=== PATIENT | male | born 1955 | race Caucasian/White ===

== ENCOUNTER 2025-04-30 19:51 | Emergency (ER) | payer MEDICARE ==
[2025-04-30 20:36] LABS: #Basophils 0.04 10x3/uL (0.0-0.2); #Eosinophils 0.13 10x3/uL (0.0-0.7); #Monocytes 0.56 10x3/uL (0.11-0.59); #Neutrophils 3.54 10x3/uL (1.40-6.50); %Basophils 0.6 % (0.0-1.0); %Eosinophils 2.1 % (0.0-10.0); %Lymphocytes 32.2 % (21.0-51.0); %Monocytes 8.8 % (0.0-10.0); %Neutrophils 56.0 % (42.0-75.0); Hematocrit 36.8 % (42.0-52.0); Hemoglobin 12.4 g/dL (14.0-18.0); Mean Corpuscular Hemoglobin 32.5 pg (27.0-31.0); Mean Corpuscular Volume 96.3 fL (78.0-98.0); Platelet Count 248 10x3/uL (130-400); Red Blood Cell (RBC) Count 3.82 mill/uL (4.70-6.10); White Blood Cell (WBC) Count 6.33 10x3/uL (4.8-10.8)
[2025-04-30 20:55] LABS: ALT (SGPT) 17 U/L (Less than 45); AST (SGOT) 29 U/L (11-34); Albumin 4.0 g/dL (3.1-4.5); Alkaline Phosphatase 92 U/L (40-110); Anion Gap 11 mmol/L (10-20); BUN (Urea Nitrogen) 20 mg/dL (8.4-25.7); Bilirubin, Total 0.3 mg/dL (0.3-1.2); Calc. Creatinine Clearance 0 mL/min (70-130); Calcium 9.2 mg/dL (7.8-10.44); Carbon Dioxide 25 mmol/L (23-31); Chloride 100 mmol/L (98-107); Globulin 2.7 g/dL (2.4-3.5); Glucose 98 mg/dL (80-115); Potassium 4.7 mmol/L (3.5-5.1); Sodium 131 mmol/L (136-145)
[2025-04-30 22:01] LABS: INR-International Normal Ratio 0.9; Prothrombin Time 12.6 sec (12.0-14.7)
[2025-04-30 22:02] LABS: PTT 43.2 sec (22.9-36.1)
[2025-04-30 23:59] LABS: Bacteria/HPF None Seen HPF (None Seen); CAUTI Indications for Culture Dysuria,urgency,freq; Glucose, Urine (Dipstick) Normal (Negative); Leukocyte Negative Leu/uL (Negative); Protein, Urine (Dipstick) Negative (Neg-Trace); RBC/HPF 0-3 HPF (0-3); Specific Gravity, Urine 1.010 (1.002-1.036); WBC/HPF None Seen HPF (0-3)
[2025-05-01 00:02] LABS: Urine Culture Reflex No No
== END 2025-05-01 00:06 | disposition home or self-care (01) ==
LOC: ERS 19:51
DX: I10 Essential (primary) hypertension (principal); R04.0 Epistaxis; Z87.891 Personal history of nicotine dependence; Z79.899 Other long term (current) drug therapy
CPT/HCPCS: 36415; 71045; 80053; 81001; 84484; 85025; 85610; 85730; 93005; 96374

== ENCOUNTER 2025-05-04 19:15 | Emergency (ER) | payer MEDICARE ==
[2025-05-04] MEDS ORDERED: hydrALAZINE 20 MG/ML VIAL ONE ×2 (19:39→20:10)
[2025-05-04] MEDS ORDERED: Aspirin Chewable 81 MG TAB ONE (19:40)
[2025-05-04 19:41] LABS: #Basophils 0.05 10x3/uL (0.0-0.2); #Eosinophils 0.06 10x3/uL (0.0-0.7); #Monocytes 0.97 10x3/uL (0.11-0.59); #Neutrophils 9.60 10x3/uL (1.40-6.50); %Basophils 0.4 % (0.0-1.0); %Eosinophils 0.5 % (0.0-10.0); %Lymphocytes 11.0 % (21.0-51.0); %Monocytes 8.0 % (0.0-10.0); %Neutrophils 79.8 % (42.0-75.0); Hematocrit 38.4 % (42.0-52.0); Hemoglobin 13.2 g/dL (14.0-18.0); Mean Corpuscular Hemoglobin 32.8 pg (27.0-31.0); Mean Corpuscular Volume 95.5 fL (78.0-98.0); Platelet Count 232 10x3/uL (130-400); Red Blood Cell (RBC) Count 4.02 mill/uL (4.70-6.10); White Blood Cell (WBC) Count 12.05 10x3/uL (4.8-10.8)
[2025-05-04 19:57] LABS: ALT (SGPT) 71 U/L (Less than 45); AST (SGOT) 80 U/L (11-34); Albumin 4.2 g/dL (3.1-4.5); Alkaline Phosphatase 118 U/L (40-110); Anion Gap 16 mmol/L (10-20); BUN (Urea Nitrogen) 23 mg/dL (8.4-25.7); Bilirubin, Total 0.4 mg/dL (0.3-1.2); Calc. Creatinine Clearance 0 mL/min (70-130); Calcium 9.2 mg/dL (7.8-10.44); Carbon Dioxide 25 mmol/L (23-31); Chloride 99 mmol/L (98-107); Globulin 3.0 g/dL (2.4-3.5); Glucose 114 mg/dL (80-115); Potassium 4.8 mmol/L (3.5-5.1); Sodium 135 mmol/L (136-145)
[2025-05-04] MEDS ORDERED: Azithromycin 500 MG VIAL ONE (21:47)
[2025-05-04] MEDS ORDERED: cefTRIAXone (ROCEPHIN) 1 GM VIAL ONE (21:47)
== END 2025-05-05 05:02 | disposition short-term general hospital (02) ==
LOC: ERS 19:15
DX: R07.9 Chest pain, unspecified (principal); I25.10 Atherosclerotic heart disease of native coronary artery without angina pectoris; I16.0 Hypertensive urgency; J18.9 Pneumonia, unspecified organism; I10 Essential (primary) hypertension; Z87.891 Personal history of nicotine dependence; Z79.899 Other long term (current) drug therapy
CPT/HCPCS: 71045; 71275; 80053; 83880; 84484 ×2; 85025; 93005; 94760; J0360; J0456; J0696; 36415; 96365; 96367; 96375; 96376